=== PATIENT | female | born 2000 | race Caucasian/White ===

== ENCOUNTER 2023-06-15 09:44 | Emergency (ER) | payer OTHER, MEDICAID, SELFPAY ==
--- NOTE | ~2023-06-15 | XR_ITS ---
EXAMINATION: XR WRIST, LEFT XR HAND, LEFT CLINICAL INFORMATION: Left wrist pain COMPARISON: None available. TECHNIQUE: PA, lateral, and oblique views of the left wrist and PA, lateral, and oblique views of the left hand FINDINGS: LEFT WRIST: The bones and soft tissues are normal. No fracture. Alignment is anatomic. Joint spaces are maintained. No erosions or soft tissue calcifications. LEFT HAND: The bones and soft tissues are normal. No fracture. Alignment is anatomic. Joint spaces are maintained. No erosions or soft tissue calcifications. XR/XR hand wrist LT IMPRESSION: Normal left hand and wrist.
--- NOTE | ~2023-06-15 | XR_ITS ---
EXAMINATION: XR CHEST CLINICAL INFORMATION: Productive cough COMPARISON: None available. TECHNIQUE: 2 views of the chest were obtained. FINDINGS: vascularity. LUNGS: Lungs are clear. No pneumothorax is seen. BONES: Bony skeleton is intact. XR/XR chest 2V IMPRESSION: Normal chest x-ray.
[2023-06-15 10:13] VITALS: BP 109/78; PULSE 108; RESP 18; TEMP 36.2; O2SAT 97; BMI 26.1
[2023-06-15 12:48] LABS: Influenza A PCR NEGATIVE (Negative); Influenza B PCR NEGATIVE (Negative); Resp Syncy Virus RNA Qual PCR POSITIVE (Negative); SARS COV2 PCR INHOUSE NEGATIVE (Negative)
--- NOTE | 2023-06-15 12:58 | ED.GENADULT ---
HPI - General Adult General Chief complaint: Upper Respiratory Symptoms Stated complaint: sob Time Seen by Provider: 06/15/23 12:32 Source: patient and family Mode of arrival: ambulatory Limitations: other (Poor historian) History of Present Illness HPI narrative: 23-year-old female presents for evaluation of productive cough with green sputum for the past 3 days. She reports intermittent shortness of breath which she attributes to wearing a mask. No wheezing. No chest pain or palpitations. She denies fevers, chills, headache, abdominal pain, and nausea, vomiting, and diarrhea. She reports many of her classmates have been sick with RSV. She also reports left wrist pain after a fall onto concrete 6 months ago would like an xray no a/c paresthesias or numbness of her hands. No swelling or bruising of the left wrist. No weakness or decreased ROM. Related Data Previous Rx's Medication Instructions Recorded albuterol sulfate 90 mcg/actuation 2 inh inhalation Q4-6H PRN 06/15/23 breath activated powder inhaler shortness of breath or wheezing #1 ea azithromycin 250 mg tablet See Rx Instructions PO .COMPLEX #6 06/15/23 tabs prednisone 50 mg tablet 50 mg PO DAILY 5 days #5 tabs 06/15/23 Allergies Allergy/AdvReac Type Severity Reaction Status Date / Time No Known Allergies Allergy Verified 06/15/23 10:12 Review of Systems Review of Systems: Constitutional : No Weight loss, No Fever, No Chills, No Fatigue, No Malaise ENT/Mouth : No sore throat, No Rhinorrhea. +Congestion Eyes: No Eye Pain, No Swelling, No Redness Cardiovascular : No Chest Pain, No SOB, No Dyspnea on Exertion, No Orthopnea, No Edema, No Palpitations Respiratory : + Cough, + Green Sputum, No Wheezing Gastrointestinal : No Nausea, No Vomiting, No Diarrhea, No Constipation, No abdominal Pain, No Hematochezia, No Melena Genitourinary : No Dysuria, No Urinary Frequency, No Hematuria, Musculoskeletal : +Left wrist pain Skin : No Skin Lesions, No rash Neuro : No Weakness, No Numbness, No Dizziness, No Headache Psych : No Anxiety/Panic, No Depression Heme/Lymph: No Bruising, No Bleeding,No Lymphadenopathy Endocrine : No Polyuria, No Polydipsia All other systems reviewed and are negative Yes all other systems are reviewed and are negative PMFSH Past Medical History Attestation statement: The following information was validated with the patient. Source: old records reviewed and nursing notes reviewed Social History Social History Smoked in Last 30 Days: No Use of substances other than those prescribed or required for medical reasons: No Advance Directives: No Advance Directives Information Provided: No Patient : No Physical Exam ED Vital Signs: Vital Signs - 24 hr 06/15/23 10:13 Temperature 97.1 F Pulse Rate 108 H Respiratory Rate 18 Blood Pressure 109/78 Pulse Oximetry 97 Oxygen Delivery Method Room Air BMI result Body Mass Index 26.1 VSS Appearance: Alert.? Oriented X3.? No acute distress.? Head: Normocephalic, atraumatic, no step-offs or deformities Eyes: Pupils equal, round and reactive to light.? Neck: Normal inspection.? Neck supple.? CVS: Normal heart rate and rhythm.? Pulses normal.? Respiratory: No respiratory distress.? Breath sounds normal.? Abdomen: Soft and nontender.? Skin: Skin warm and dry.? Normal skin color.? Normal skin turgor.? Extremities: 2+ brachial, radial, and ulnar pulses bilaterally. +Tenderness to palpation of the left wrist. No edema, erythema, or ecchymosis of the b/l wrist. 5/5 strength and full ROM to bilateral upper extremities. Sensation to sharp and dull intact in bilateral upper extremities. No wrist drop. Back: No midline tenderness, no C-spine tenderness, full range of motion, no CVA tenderness bilaterally Neuro: Oriented X 3.? No motor deficit.? No sensory deficit. CN 2-12 intact Course Reevaluation(s) Reevaluation #1: Patient is noted to be positive for RSV. Chest x-ray unremarkable. Hand/wrist x-ray still pending however grossly negative upon my examination, patient's father would like to leave. Patient well-appearing. Will discharge home with prednisone, albuterol. Will send home with a Z-Dylon as patient does have productive sputum in it has been going on for 2 weeks to cover for possible bronchitis versus bacterial infection. Educated patient on diagnosis and treatment plan, answered all question, patient verbalizes understanding. At this time patient will be discharged home, advised to return with new or worsening symptoms. Educated on worrisome signs and symptoms and when to return. At this time I feel comfortable discharge home. Time: 15:05 Reevaluation #2: Normal left wrist. Medical Decision Making Medical Decision Making [facility] Narrative: 23-year-old female presents for evaluation of cough with green sputum x 3 days. No fevers, chills, wheeze, shortness of breath, sore throat, or headache. She also reports left wrist pain after a fall 6 months ago. Physical exam revealed tenderness to palpation of the left wrist Likely viral respiratory infection secondary to flu/covid/rsv, bronchitis. Unlikely pneumonia, pleural effusion, PE , acute respiratory distress Likely contussion or minor strain, unlikely fracture, NV compromise, threat to limb, septic joint Plan: Viral swabs, chest x-ray, wrist x-ray Differential Diagnosis Differential Diagnoses: The differential diagnosis associated with the presentation includes Likely viral respiratory infection secondary to flu/covid/rsv, bronchitis. Unlikely pneumonia, pleural effusion, PE , acute respiratory distress Likely contussion or minor strain, unlikely fracture, NV compromise, threat to limb, septic joint Admission/Observation Consideration of admission/observation: Escalation of care including admission/observation considered unlikely Lab Data [facility] Lab Attestation statement: I reviewed the patient's lab results. Labs: Lab Results 06/15/23 Range/Units 12:08 Influenza Type A (PCR) NEGATIVE (Negative) Influenza Type B (PCR) NEGATIVE (Negative) RSV RNA Qual (PCR) POSITIVE A (Negative) SARS-CoV-2 RNA (RT-PCR) NEGATIVE (Negative) Independent Interpretation I performed an independent interpretation of an: Plain X-Ray Radiology Impression Discussion of test interpretation with radiology: I have reviewed the radiologist's reading. Prescription Management I considered prescription management with: Antibiotic Critical Care Time Critical Care Time Critical Care Time: No Discharge Plan Discharge Clinical Impression: Respiratory syncytial virus (RSV), Left wrist pain Patient Disposition: Home, Self-Care Instructions: Wrist Injury (ED), R.I.C.E. Treatment (ED) Additional Instructions: Take your medications as prescribed. If you were prescribed antibiotics today, it is important that you take your medication to their entirety, do not skip any doses, do not finish them early. Follow-up with your primary care provider this week. Return to the emergency department with new or worsening symptoms. Such as fevers, chills, chest pain, shortness of breath, nausea, vomiting, dizziness, headache, vision changes, lethargy In case of emergency call 911 XR/XR hand wrist LT IMPRESSION: Normal left hand and wrist. Prescriptions: New azithromycin 250 mg tablet See Rx Instructions .ROUTE .COMPLEX Qty: 6 0RF Rx Instructions: For 250 mg dose pack: take 500 mg today (day 1), then 250 mg for 4 days (days 2-5) prednisone 50 mg tablet 50 mg PO DAILY 5 Days Qty: 5 0RF albuterol sulfate 90 mcg/actuation aerosol powdr breath activated 2 inh inhalation Q4-6H PRN (Reason: shortness of breath or wheezing) Qty: 1 0RF Referrals: Julieth Major MD [Primary Care Provider] - 2 days Stand Alone Forms: Work/School Release
--- NOTE | 2023-06-15 14:05 | PC.NURSE ---
pt to xray at this time.
--- NOTE | 2023-06-15 14:14 | PC.NURSE ---
Addendum entered by Abiola Puga 06/15/23 14:21: *xray Original Note: pt returned from CT at this time.
--- NOTE | 2023-06-15 15:38 | PC.NURSE ---
ari bandage applied to left wrist.
== END 2023-06-15 15:39 | disposition home or self-care (01) ==
PROVIDERS: Physician Assistant Medical; Emergency Provider Emergency Medicine; PCP Internal Medicine
DX: J22 Unspecified acute lower respiratory infection (principal); B97.4 Respiratory syncytial virus as the cause of diseases classified elsewhere; R06.02 Shortness of breath; R05.9 Cough, unspecified; M25.532 Pain in left wrist; Z20.822 Contact with and (suspected) exposure to COVID-19; Z20.828 Contact with and (suspected) exposure to other viral communicable diseases
CPT/HCPCS: 0241U; 71046; 73110; 73130; 99283; 99284